=== PATIENT | male | born 1945 | race Caucasian/White ===

== ENCOUNTER 2018-04-14 08:01 | Emergency (ER) | payer MEDICARE, OTHER ==
--- NOTE | 2018-04-14 10:00 | RAD ---
2 VIEW CHEST: Date: 04/14/18 INDICATION: Cough. FINDINGS: There is no consolidation or effusion. High density foci of the lateral right mid lung zone favoring granulomatous calcifications. Cardiac silhouette is upper limits of normal in size. Osseous structure s are intact. IMPRESSION: 1. No focal consolidation. 2. Granulomatous calcification. POS: [facility]
--- NOTE | 2018-04-14 11:53 | CT ---
CT CHEST NONCONTRAST: Date: 04/14/18 Reference made to preceding chest radiograph. INDICATION: Cough with concern for aspiration of pill. FINDINGS: There is no radiopaque filling defect of the tracheobronchial air column. There are scattered granulo matous calcifications involving the right hilum and the pulmonary parenchyma. The regional soft tissu es, including vasculature and lymph nodes, are limited assessment with noncontrast technique. There i s no evidence of lobar consolidation, effusion, or pneumothorax. Mild scattered areas of volume loss and/or scarring are seen within the right lung. No acute osseous pathology. Prominent sized, partiall y imaged cystic structure of the right kidney is present. Cholecystectomy clips are present. IMPRESSION: No definite acute process. POS: [id number]
== END 2018-04-14 11:11 | disposition home or self-care (01) ==
LOC: MADERS 08:01
DX: T17.200A Unspecified foreign body in pharynx causing asphyxiation, initial encounter (principal); I25.10 Atherosclerotic heart disease of native coronary artery without angina pectoris; I25.2 Old myocardial infarction; Z79.899 Other long term (current) drug therapy; Z79.82 Long term (current) use of aspirin
CPT/HCPCS: 71046; 71250